=== PATIENT | male | born 1985 | race Caucasian/White ===

== ENCOUNTER 2021-01-13 00:39 | Observation (INO) | payer OTHER ==
[~2021-01-13] VITALS: Ht 182.9 cm; Wt 70.2 kg
[~2021-01-13 00:39] MED LIST: ESOM20CA PO; FENTANYL TD; GABA-827 PO; LORA2TAB99 PO
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
[2021-01-13] MEDS ORDERED: MORPHINE SULFATE 4 MG/ML, 1ML IVPush ONE (01:00)
[2021-01-13] MEDS ORDERED: MORPHINE SULFATE 4 MG/ML, 1ML ONE (01:05)
--- NOTE | 2021-01-13 01:55 | NUR ---
PT RESTING, RESQUESTING LIGHTS OFF.
--- NOTE | 2021-01-13 03:12 | NUR ---
REPORT GIVEN TO LESIA HDZ
--- NOTE | 2021-01-13 03:15 | NUR ---
RECEIVED REPORT FROM WILDER MCDONALD. PATIENT FOR ADMIT. SEEN BY RAVEN.
--- NOTE | 2021-01-13 03:25 | NUR ---
HOSPITALIST AT BEDSIDE.
[2021-01-13] MEDS ORDERED: LABETALOL 5MG/ML, 20ML IVPush PRN (03:30)
[2021-01-13] MEDS ORDERED: NICOTINE 14MG/24 HR PATCH.TD24 TD ONE (03:30)
[2021-01-13] MEDS ORDERED: LACTATED RINGERS 1,000 ML IV SCH (03:30)
[2021-01-13] MEDS ORDERED: ACETAMINOPHEN 325 MG TABLET PO PRN (03:30)
[2021-01-13] MEDS ORDERED: ONDANSETRON 2MG/ML, 2ML IVPush PRN (03:30)
[2021-01-13] MEDS ORDERED: morphine SULFATE 10 MG/ML, 1ML IVPush PRN (03:30)
--- NOTE | 2021-01-13 03:47 | NUR ---
RAPID COVID SWAB SENT TO LAB. REPORT GIVEN TO WILDER SALDANA
[2021-01-13] MEDS ORDERED: OXYcodone/APAP 5/325MG TABLET PO PRN (04:00)
[2021-01-13] MEDS ORDERED: AMPICILLIN/SULBACTAM 3 GM in SODIUM CHLORIDE 0.9% 100 ML IV SCH (05:30)
[2021-01-13 07:56] VITALS: BP 107/68
[2021-01-13 08:13] LABS: AMPHETAMINE SCREEN, URINE Positive (Negative); BARBITURATE SCREEN, URINE Negative (Negative); BENZODIAZEPINE SCREEN, URINE Negative (Negative); CANNABINOID SCREEN, URINE Positive (Negative); COCAINE SCREEN, URINE Negative (Negative); METHADONE SCREEN, URINE Negative (Negative); OPIATE SCREEN, URINE Positive (Negative)
[2021-01-13] MEDS ORDERED: HYDROcodone/APAP 10/325 MG TABLET ONE (08:59)
[2021-01-13] MEDS ORDERED: HYDROcodone/APAP 10/325 MG TABLET PO ONE (09:00)
[2021-01-13] MEDS ORDERED: SENNA/DOCUSATE TABLET PO SCH (09:00)
[2021-01-13] MEDS ORDERED: PANTOPRAZOLE 20MG TABLET PO SCH (09:00)
[2021-01-13 10:06] LABS: BASOPHILS % (AUTO) 0 % (0-1); EOSINOPHILS % (AUTO) 1 % (1-7); LYMPHOCYTES % (AUTO) 20 % (22-44); MEAN CORPUSCULAR HEMOGLOBIN 27.2 pg (27.5-34.5); MEAN PLATELET VOLUME 7.9 fL (7.4-10.4); MONOCYTES % (AUTO) 7 % (2-9); NEUTROPHILS % (AUTO) 73 % (42-75); PLATELET COUNT 274 x10^3/uL (130-400); RED BLOOD COUNT 5.56 x10^6/uL (4.38-5.82); RED CELL DISTRIBUTION WIDTH 14.6 % (9.4-14.8)
[2021-01-13 10:07] LABS: MD NO
[2021-01-13 10:09] LABS: ALBUMIN 3.6 g/dL (3.4-5.0); ANION GAP 5 mmol/L (5-15); CALCIUM 9.4 mg/dL (8.5-10.1); CHLORIDE 106 mmol/L (98-107); CREATININE 0.74 mg/dL (0.7-1.3)
== END 2021-01-13 10:58 | disposition left against medical advice (07) ==
LOC: ED 01:28 → INTOOBSV 03:49 → EDIP 03:49 → 4NE 03:59
PROVIDERS: ADMIT Family Medicine; ATTEND Internal Medicine
DX: S02.609A Fracture of mandible, unspecified, initial encounter for closed fracture (principal); Z20.822 Contact with and (suspected) exposure to COVID-19; S02.32XA Fracture of orbital floor, left side, initial encounter for closed fracture; S02.640A Fracture of ramus of mandible, unspecified side, initial encounter for closed fracture; F43.10 Post-traumatic stress disorder, unspecified; G89.29 Other chronic pain; M54.9 Dorsalgia, unspecified; G43.909 Migraine, unspecified, not intractable, without status migrainosus; G50.0 Trigeminal neuralgia; F41.8 Other specified anxiety disorders; K21.9 Gastro-esophageal reflux disease without esophagitis; K04.7 Periapical abscess without sinus; K02.9 Dental caries, unspecified; E87.1 Hypo-osmolality and hyponatremia; F12.10 Cannabis abuse, uncomplicated; F17.210 Nicotine dependence, cigarettes, uncomplicated; F11.20 Opioid dependence, uncomplicated; Y04.0XXA Assault by unarmed brawl or fight, initial encounter; Y93.89 Activity, other specified; Y92.89 Other specified places as the place of occurrence of the external cause; Z87.820 Personal history of traumatic brain injury; Z66 Do not resuscitate; Z87.828 Personal history of other (healed) physical injury and trauma; Z79.899 Other long term (current) drug therapy
CPT/HCPCS: 36415; 80048; 80307; 82040; 85025; 87635; 96361; 96365; 96375; 99284; G0378; J0295; J2270; J7120

== ENCOUNTER 2021-01-17 02:23 | Observation (INO) | payer OTHER ==
[~2021-01-17] VITALS: Ht 182.9 cm; Wt 77.0 kg
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
[2021-01-17 05:16] LABS: ALANINE AMINOTRANSFERASE 14 U/L (12-78); ALBUMIN 3.1 g/dL (3.4-5.0); ANION GAP 4 mmol/L (5-15); CALCIUM 8.7 mg/dL (8.5-10.1); CHLORIDE 107 mmol/L (98-107); CREATININE 0.79 mg/dL (0.7-1.3)
[2021-01-17 05:18] LABS: ALKALINE PHOSPHATASE 113 U/L (45-117); BILIRUBIN,TOTAL 0.1 mg/dL (0.2-1.0); TOTAL PROTEIN 6.8 g/dL (6.4-8.2)
--- NOTE | 2021-01-17 06:05 | NUR ---
HOSPITALIST AT BEDSIDE
[2021-01-17 06:14] LABS: BASOPHILS % (AUTO) 0 % (0-1); EOSINOPHILS % (AUTO) 2 % (1-7); LYMPHOCYTES % (AUTO) 28 % (22-44); MEAN CORPUSCULAR HEMOGLOBIN 26.4 pg (27.5-34.5); MEAN CORPUSCULAR HGB CONC 33.2 g/dL (33.2-36.2); MEAN PLATELET VOLUME 7.4 fL (7.4-10.4); MONOCYTES % (AUTO) 7 % (2-9); NEUTROPHILS % (AUTO) 63 % (42-75); PLATELET COUNT 334 x10^3/uL (130-400); RED BLOOD COUNT 4.88 x10^6/uL (4.38-5.82); RED CELL DISTRIBUTION WIDTH 14.5 % (9.4-14.8)
[2021-01-17] MEDS ORDERED: MORPHINE SULFATE 4 MG/ML, 1ML ONE (06:19)
[2021-01-17] MEDS: SODIUM CHLORIDE 0.9% 1,000 ML IV SCH ×2 (06:21→16:30)
[2021-01-17] MEDS: morphine SULFATE 10 MG/ML, 1ML IVPush PRN ×4 (06:21→21:08)
[2021-01-17 06:23] LABS: MD NO
[2021-01-17] MEDS ORDERED: ONDANSETRON 2MG/ML, 2ML IVPush PRN ×2 (06:30→15:00)
--- NOTE | 2021-01-17 06:56 | NUR ---
Pt to be admitted to SURGICAL, room 461. Report called to DARRYN.
[2021-01-17 07:43] VITALS: BP 128/73
[2021-01-17] MEDS ORDERED: MORPHINE SULFATE 4 MG/ML, 1ML IVPush ONE (08:30)
[2021-01-17] MEDS: AMPICILLIN/SULBACTAM 3 GM in SODIUM CHLORIDE 0.9% 100 ML IV SCH ×4 (11:08→23:00)
[2021-01-17] MEDS: CHLORHEXIDINE 15 ML UDC MM SCH ×2 (11:08→14:28)
[2021-01-17] MEDS ORDERED: BALANCED SALT OPHTH IRRIG SOLN 18ML ONE (14:29)
[2021-01-17] MEDS ORDERED: LIDOCAINE/PF 1%, 30ML ONE (14:29)
[2021-01-17] MEDS ORDERED: EPINEPHRINE 1 MG/ML, 1ML ONE (14:30)
[2021-01-17] MEDS ORDERED: OXYMETAZOLINE NASAL SPRAY 0.05%,30ML ONE (14:30)
[2021-01-17] MEDS ORDERED: CHLORHEXIDINE 15 ML UDC ONE (14:32)
[2021-01-17] MEDS ORDERED: FENTANYL PF 250 MCG/5ML ONE ×5 (14:49→16:12)
[2021-01-17] MEDS ORDERED: MIDAZOLAM 1 MG/ML, 2ML ONE (14:49)
[2021-01-17] MEDS ORDERED: MEPERIDINE/PF 25MG/0.5ML IVPush PRN (15:00)
[2021-01-17] MEDS ORDERED: hydrALAzine 20 MG/ML, 1ML IV PRN (15:00)
[2021-01-17] MEDS ORDERED: LABETALOL 5MG/ML, 20ML IV PRN (15:00)
[2021-01-17] MEDS ORDERED: morphine SULFATE 10 MG/ML, 1ML IVPush PRN (15:00)
[2021-01-17] MEDS ORDERED: OXYcodone 5 MG/5 ML ORAL.SOL UDC PO PRN (15:00)
[2021-01-17] MEDS ORDERED: ACETAMINOPHEN 325 MG TABLET PO PRN (15:00)
[2021-01-17] MEDS ORDERED: PROPOFOL 10 MG/ML, 20ML ONE (15:38)
[2021-01-17] MEDS ORDERED: ROCURONIUM 10MG/ML,5ML ONE (15:38)
[2021-01-17] MEDS ORDERED: NEOSTIGMINE 1 MG/ML, 10ML ONE (15:38)
[2021-01-17] MEDS ORDERED: GLYCOPYRROLATE 0.2MG/1ML, 5ML ONE (15:38)
[2021-01-17] MEDS ORDERED: CEFAZOLIN 1,000 MG ONE (15:38)
[2021-01-17] MEDS ORDERED: HYDROmorphone 1 MG/ML, 1ML INJ ONE ×6 (16:13→19:45)
[2021-01-17] MEDS ORDERED: HYDROmorphone 2 MG/ML, 1ML ONE ×3 (16:34→16:56)
[2021-01-17] MEDS ORDERED: FENTANYL PF 100 MCG/2ML ONE ×2 (18:09→18:21)
[2021-01-17] MEDS: FENTANYL PF 100 MCG/2ML IV PRN ×4 (18:10→18:37)
[2021-01-17] MEDS ORDERED: OXYcodone 5 MG/5 ML ORAL.SOL UDC ONE ×2 (18:45→18:46)
[2021-01-17] MEDS: HYDROmorphone 1 MG/ML, 1ML INJ IVPush PRN ×6 (18:50→20:00)
[2021-01-17] MEDS ORDERED: MEPERIDINE/PF 25MG/ML,1ML ONE (19:08)
[2021-01-17 20:28] VITALS: BP 130/82
[2021-01-17] MEDS ORDERED: CHLORHEXIDINE 15 ML UDC MM ONE (21:00)
[2021-01-17] MEDS ORDERED: MORPHINE SULFATE 4 MG/ML, 1ML IV PRN (21:00)
[2021-01-17] MEDS: D5%-0.45% NACL 1,000 ML IV SCH (21:00)
[2021-01-17] MEDS ORDERED: OXYcodone IR 5MG TABLET PO PRN (21:00)
[2021-01-17] MEDS ORDERED: OXYcodone IR 5MG TABLET ONE (23:38)
[2021-01-17] MEDS: OXYcodone IR 5MG TABLET PO PRN (23:49)
[2021-01-18 00:20] VITALS: BP 133/88
[2021-01-18] MEDS: SODIUM CHLORIDE 0.9% 1,000 ML IV SCH (02:30)
[2021-01-18] MEDS: AMPICILLIN/SULBACTAM 3 GM in SODIUM CHLORIDE 0.9% 100 ML IV SCH ×3 (03:00→09:00)
[2021-01-18 04:05] VITALS: BP 129/84
[2021-01-18] MEDS: OXYcodone IR 5MG TABLET PO PRN (04:05)
[2021-01-18 06:29] VITALS: BP 111/60
[2021-01-18] MEDS: D5%-0.45% NACL 1,000 ML IV SCH (07:00)
[2021-01-18] MEDS ORDERED: morphine SULFATE 10 MG/ML, 1ML ONE (07:13)
[2021-01-18] MEDS: CHLORHEXIDINE 15 ML UDC MM SCH (09:00)
[2021-01-18] MEDS ORDERED: morphine SULFATE 10 MG/ML, 1ML IVPush PRN (09:30)
== END 2021-01-18 10:15 | disposition left against medical advice (07) ==
LOC: ED 05:08 → EDIP 06:21 → INTOOBSV 06:21 → 4NE 07:06
PROVIDERS: ADMIT Family Medicine; ATTEND Internal Medicine
DX: S02.602A Fracture of unspecified part of body of left mandible, initial encounter for closed fracture (principal); S02.32XA Fracture of orbital floor, left side, initial encounter for closed fracture; K04.7 Periapical abscess without sinus; F43.10 Post-traumatic stress disorder, unspecified; G43.909 Migraine, unspecified, not intractable, without status migrainosus; K21.9 Gastro-esophageal reflux disease without esophagitis; F17.210 Nicotine dependence, cigarettes, uncomplicated; G89.29 Other chronic pain; M54.9 Dorsalgia, unspecified; G50.0 Trigeminal neuralgia; F41.8 Other specified anxiety disorders; F12.10 Cannabis abuse, uncomplicated; F15.129 Other stimulant abuse with intoxication, unspecified; F11.20 Opioid dependence, uncomplicated; Z87.828 Personal history of other (healed) physical injury and trauma; Z87.820 Personal history of traumatic brain injury; Z20.822 Contact with and (suspected) exposure to COVID-19; Z91.19 Patient's noncompliance with other medical treatment and regimen; Z63.8 Other specified problems related to primary support group; Y04.0XXA Assault by unarmed brawl or fight, initial encounter; Y93.89 Activity, other specified; Y92.89 Other specified places as the place of occurrence of the external cause
CPT/HCPCS: 21462; 36415; 70486; 80053; 85025; 87635; 96361; 96365; 96375; 96376; 99284; C1713; G0378; J0171; J0295; J0690; J1170; J2175; J2250; J2270; J2704; J2710; J3010; J3490; J7030

== ENCOUNTER 2021-01-19 21:58 | Emergency (ER) | payer OTHER ==
[~2021-01-19] VITALS: Ht 182.9 cm; Wt 76.5 kg
[2021-01-19 22:05] VITALS: BP 121/84
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
--- NOTE | 2021-01-19 23:31 | NUR ---
PT WENT TO BATHROOM AND HAS NOT RETURNED TO ROOM, ER CHECKED INCLUDING BATHROOMS AND PT NOT SEEN, SECURITY NOTIFIED
== END 2021-01-19 23:41 | disposition left against medical advice (07) ==
LOC: ED 22:27
DX: R68.84 Jaw pain (principal); G89.18 Other acute postprocedural pain
CPT/HCPCS: 99281